=== PATIENT | female | born 2000 ===

== ENCOUNTER → 2019-12-14 | Outpatient (CLI) | payer OTHER ==
[2019-12-14 16:45] LABS: Source, Urine Clean Catch
[2019-12-14 19:02] LABS: Bilirubin, Urine Neg (Neg); Blood, Urine 1+ (Neg); Glucose Qualitative, Urine Neg (Neg); Ketones, Urine Neg (Neg); Leukocyte Esterase, Urine 2+ (Neg); Nitrite, Urine Pos (Neg); Protein, Urine 1+ (Neg); Urobilinogen, Urine NORM (Normal)
[2019-12-14 19:04] LABS: Appearance, Urine Hazy (Clear); Color, Urine Yellow (P-Yellow)
[2019-12-14 19:05] LABS: Bacteria Many /hpf; Red Blood Cells, Urine 0-2 /hpf (0-2); Squamous Epithelial Cells Many /hpf (Few)
== END | disposition home or self-care (01) ==
LOC: LAB SHORT 14:45 → LAB 14:45
PROVIDERS: Obstetrics & Gynecology
DX: O99.89 Other specified diseases and conditions complicating pregnancy, childbirth and the puerperium (principal); R82.90 Unspecified abnormal findings in urine
CPT/HCPCS: 81001; 87077; 87081; 87086; 87186; 87653

== ENCOUNTER → 2019-12-28 | Outpatient (CLI) | payer OTHER ==
[2019-12-28 16:46] LABS: Source, Urine Clean Catch
[2019-12-28 18:38] LABS: Bilirubin, Urine Neg (Neg); Blood, Urine 2+ (Neg); Glucose Qualitative, Urine Neg (Neg); Ketones, Urine 1+ (Neg); Leukocyte Esterase, Urine 2+ (Neg); Nitrite, Urine Neg (Neg); Protein, Urine 3+ (Neg); Specific Gravity, Urine 1.025 (1.003-1.022); Urobilinogen, Urine NORM (Normal)
[2019-12-28 19:17] LABS: Appearance, Urine Cloudy (Clear); Color, Urine Yellow (P-Yellow)
[2019-12-28 19:23] LABS: Bacteria Many /hpf; Squamous Epithelial Cells Many /hpf (Few)
== END ==
LOC: LAB SHORT 15:30 → LAB 15:30
PROVIDERS: Obstetrics & Gynecology
DX: R31.9 Hematuria, unspecified (principal)
CPT/HCPCS: 81001

== ENCOUNTER 2020-01-10 05:44 | Inpatient (IN) | payer OTHER ==
[~2020-01-10] VITALS: Ht 175.3 cm; Wt 104.0 kg
[2020-01-10 06:20] LABS: BASOPHILS ABSOLUTE AUTO 0.03 K/mm3 (0.00-0.23); BASOPHILS PERCENT AUTO 1 % (0-2); EOSINOPHILS ABSOLUTE AUTO 0.07 K/mm3 (0.00-0.68); EOSINOPHILS PERCENT AUTO 1 % (0-6); Hematocrit 34.4 % (33.0-51.0); Hemoglobin 11.2 g/dL (11.5-16.0); IMMATURE GRAN ABSOLUTE AUTO 0.03 K/mm3 (0.00-0.10); IMMATURE GRAN PERCENT AUTO 1 % (0-1); LYMPHOCYTES ABSOLUTE AUTO 2.67 K/mm3 (0.84-5.20); LYMPHOCYTES PERCENT AUTO 41 % (21-46); MONOCYTES ABSOLUTE AUTO 0.61 K/mm3 (0.16-1.47); MONOCYTES PERCENT AUTO 9 % (4-13); Mean Corpuscular HGB 27.3 pg (26.0-34.0); Mean Corpuscular HGB Conc 32.6 g/dL (31.5-36.5); Mean Corpuscular Volume 84 fL (80-100); Mean Platelet Volume 10.3 fL (9.1-12.4); NEUTROPHILS ABSOLUTE AUTO 3.19 K/mm3 (1.96-9.15); NEUTROPHILS PERCENT AUTO 48 % (41-73); Platelet Count 255 K/mm3 (150-400); RDW Coefficient Variation 14.6 % (11.7-14.2); RDW Standard Deviation 43.7 fL (35.1-46.3); Red Blood Cell Count 4.11 M/mm3 (3.80-5.20)
[2020-01-10] MEDS ORDERED: CEPH500 PO (06:25)
[2020-01-10 17:19] LABS: Source, Urine Catheter
[2020-01-10 17:27] LABS: Bilirubin, Urine Neg (Neg); Blood, Urine Neg (Neg); Glucose Qualitative, Urine Neg (Neg); Ketones, Urine Neg (Neg); Leukocyte Esterase, Urine Neg (Neg); Nitrite, Urine Neg (Neg); Protein, Urine 1+ (Neg); Specific Gravity, Urine 1.015 (1.003-1.022); Urobilinogen, Urine NORM (Normal)
[2020-01-10 17:37] LABS: Appearance, Urine Clear (Clear); Color, Urine Yellow (P-Yellow)
--- NOTE | 2020-01-10 19:30 | NUR ---
ASSUMED PT CARE, BEDSIDE REPORT RECEIVED. PT RESTING IN BED, BLADDER DISTENDED, PT UP TO SHOWER, VOIDED. FF, SCANT, -2 AFTER VOID. PLAN TO REST. WILL RECHECK CBG ON NB AT 2230 OR BEFORE IF NEEDED. PT REPORTS LATCH WENT OK, ENCOURGED TO CALL IF NEEDING ASSISTANCE.
--- NOTE | 2020-01-11 07:01 | NUR ---
REPORT TO ONCOMING SHIFT, NO ACUTE CHANGES.
--- NOTE | 2020-01-11 13:34 | NUR ---
RN ROUNDED ON PT TO HELP WITH EDUCATION. INSTRUCT/DEMO ON WIDENING LATCH AND CORRECT POSITIOING. NB NOT SHOWING ANY INTEREST IN BRF AT THIS TIME, MOTHER VERBALIZED UNDERSTANDING OF INSTRUCTIONS. NURSING BOOKLET AND PAMPHLET REVIEWED WITH PT. PT VERBALIZED UNDERSTANDING AND DENIES ANY FURTHER QUESTIONS OR CONCERNS. RN INSTRUCT/DEMO HOW TO HAND EXPRESS COLOSTRUM INTO NB MOUTH.
--- NOTE | 2020-01-11 20:36 | NUR ---
Discharge teaching given, paper signed, hugs removed, and walked out to car with baby and family at 2030. HERB, RN
--- NOTE | 2020-01-11 21:54 | NUR ---
LIMITED ASSESSMENT DONE WHILE WORKING ON DISCHARGING PT. PT DENIED FURTHER QUESTIONS OR CONCERNS DURING DISCHARGE TEACHING AND APPEARS WELL AND COMFORTABLE. INSTRUCTED THAT SHE CAN CALL [facility] FOR QUESTIONS OR CONCERNS. HERB, RN
== END 2020-01-11 20:30 | disposition home or self-care (01) | DRG 807 ==
LOC: BC 05:44
PROVIDERS: ADMIT Obstetrics & Gynecology
PROC: 10E0XZZ Delivery of Products of Conception, External Approach (ICD-10-PCS; principal; 2020-01-10)
PROC: 0UQMXZZ Repair Vulva, External Approach (ICD-10-PCS; 2020-01-10)
PROC: 3E033VJ Introduction of Other Hormone into Peripheral Vein, Percutaneous Approach (ICD-10-PCS; 2020-01-10)
PROC: 10907ZC Drainage of Amniotic Fluid, Therapeutic from Products of Conception, Via Natural or Artificial Opening (ICD-10-PCS; 2020-01-10)
DX: O99.824 Streptococcus B carrier state complicating childbirth (principal); Z37.0 Single live birth; Z3A.40 40 weeks gestation of pregnancy; O71.82 Other specified trauma to perineum and vulva; Z87.891 Personal history of nicotine dependence
CPT/HCPCS: 36415; 51702; 85025; 86850; 86900; 86901; J0290; J2001; J2590; J3010; J7120

== ENCOUNTER → 2022-01-17 | Outpatient (CLI) | payer OTHER ==
[~2022-01-17] MED LIST: CEPH500 PO
[2022-01-22 13:11] LABS: CHLAMYDIA TRACHOMATIS, NAA Negative (Negative)
== END | disposition home or self-care (01) ==
LOC: LAB 08:16 → LAB SHORT 08:16
PROVIDERS: Obstetrics & Gynecology
DX: Z01.419 Encounter for gynecological examination (general) (routine) without abnormal findings (principal); Z11.3 Encounter for screening for infections with a predominantly sexual mode of transmission
CPT/HCPCS: 87491; 87591; G0123

== ENCOUNTER 2023-08-28 08:35 | Inpatient (IN) | payer OTHER ==
[2023-08-28] VITALS (24 sets, daily range): BP systolic 101–133; BP diastolic 56–84
[~2023-08-28] VITALS: Ht 175.3 cm; Wt 105.5 kg
[~2023-08-28 08:35] MED LIST changes: +IBUP800 PO; +IRON18 MG PO; +PRENATAL TABLE1 EAC2 PO
[2023-08-28 09:27] LABS: BASOPHILS ABSOLUTE AUTO 0.03 K/mm3 (0.00-0.23); BASOPHILS PERCENT AUTO 0 % (0-2); EOSINOPHILS ABSOLUTE AUTO 0.04 K/mm3 (0.00-0.68); EOSINOPHILS PERCENT AUTO 1 % (0-6); Hematocrit 31.6 % (33.0-51.0); Hemoglobin 9.9 g/dL (11.5-16.0); IMMATURE GRAN ABSOLUTE AUTO 0.03 K/mm3 (0.00-0.10); IMMATURE GRAN PERCENT AUTO 0 % (0-1); LYMPHOCYTES ABSOLUTE AUTO 2.29 K/mm3 (0.84-5.20); LYMPHOCYTES PERCENT AUTO 32 % (21-46); MONOCYTES ABSOLUTE AUTO 0.45 K/mm3 (0.16-1.47); MONOCYTES PERCENT AUTO 6 % (4-13); Mean Corpuscular HGB 21.9 pg (26.0-34.0); Mean Corpuscular HGB Conc 31.3 g/dL (31.5-36.5); Mean Corpuscular Volume 70 fL (80-100); Mean Platelet Volume 10.2 fL (9.1-12.4); NEUTROPHILS ABSOLUTE AUTO 4.28 K/mm3 (1.96-9.15); NEUTROPHILS PERCENT AUTO 60 % (41-73); Platelet Count 300 K/mm3 (150-400); RDW Coefficient Variation 19.3 % (11.7-14.2); RDW Standard Deviation 46.1 fL (35.1-46.3); Red Blood Cell Count 4.53 M/mm3 (3.80-5.20); White Blood Cell Count 7.12 K/mm3 (4.00-11.30)
[2023-08-29 04:54] VITALS: BP 110/58
[2023-08-29 05:51] LABS: BASOPHILS ABSOLUTE AUTO 0.04 K/mm3 (0.00-0.23); BASOPHILS PERCENT AUTO 1 % (0-2); EOSINOPHILS ABSOLUTE AUTO 0.07 K/mm3 (0.00-0.68); EOSINOPHILS PERCENT AUTO 1 % (0-6); Hematocrit 27.8 % (33.0-51.0); Hemoglobin 8.8 g/dL (11.5-16.0); IMMATURE GRAN ABSOLUTE AUTO 0.03 K/mm3 (0.00-0.10); IMMATURE GRAN PERCENT AUTO 0 % (0-1); LYMPHOCYTES ABSOLUTE AUTO 2.53 K/mm3 (0.84-5.20); LYMPHOCYTES PERCENT AUTO 30 % (21-46); MONOCYTES ABSOLUTE AUTO 0.57 K/mm3 (0.16-1.47); MONOCYTES PERCENT AUTO 7 % (4-13); Mean Corpuscular HGB 22.4 pg (26.0-34.0); Mean Corpuscular HGB Conc 31.7 g/dL (31.5-36.5); Mean Corpuscular Volume 71 fL (80-100); NEUTROPHILS ABSOLUTE AUTO 5.35 K/mm3 (1.96-9.15); NEUTROPHILS PERCENT AUTO 62 % (41-73); Platelet Count 238 K/mm3 (150-400); RDW Coefficient Variation 19.2 % (11.7-14.2); RDW Standard Deviation 47.8 fL (35.1-46.3); Red Blood Cell Count 3.93 M/mm3 (3.80-5.20); White Blood Cell Count 8.59 K/mm3 (4.00-11.30)
[2023-08-29 08:44] VITALS: BP 109/64
[2023-08-29 11:28] VITALS: BP 107/70
[2023-08-29 14:30] LABS: RPR Reactive (Nonreactive)
[2023-08-29] MEDS ORDERED: FERREX 28 TABL1 EACH PO (15:27)
[2023-08-29] MEDS ORDERED: IBUP800 PO (15:27)
[2023-08-29] MEDS ORDERED: FERSU300 PO (15:29)
[2023-08-29 15:36] VITALS: BP 99/70
--- NOTE | 2023-08-29 15:55 | NUR ---
DISCHARGE DISCHARGE HOME STABLE WITH . VSS. AFEBRILE. LOCHIA SCAN. CARING FOR SELF AND BABY INDEPENDANTLY. NO QUESTIONS OR CONCERNS. VERBALIZES UNDERSTANDING OF DC INSTRUCTIONS AND FOLLOW UP APPOINTMENTS.
== END 2023-08-29 15:50 | disposition home or self-care (01) | DRG 806 ==
LOC: OBS 08:35 → BC 08:37 → OBS 08:47 → BC 08:48
PROVIDERS: ADMIT Obstetrics & Gynecology
PROC: 10E0XZZ Delivery of Products of Conception, External Approach (ICD-10-PCS; principal; 2023-08-28)
PROC: 3E0R3BZ Introduction of Anesthetic Agent into Spinal Canal, Percutaneous Approach (ICD-10-PCS; 2023-08-28)
PROC: 00HU33Z Insertion of Infusion Device into Spinal Canal, Percutaneous Approach (ICD-10-PCS; 2023-08-28)
PROC: 10907ZC Drainage of Amniotic Fluid, Therapeutic from Products of Conception, Via Natural or Artificial Opening (ICD-10-PCS; 2023-08-28)
DX: O99.344 Other mental disorders complicating childbirth (principal); O99.324 Drug use complicating childbirth; Z37.0 Single live birth; F41.9 Anxiety disorder, unspecified; F32.A Depression, unspecified; O71.89 Other specified obstetric trauma; F12.90 Cannabis use, unspecified, uncomplicated; O99.02 Anemia complicating childbirth; O76 Abnormality in fetal heart rate and rhythm complicating labor and delivery; D50.9 Iron deficiency anemia, unspecified; Z3A.39 39 weeks gestation of pregnancy; Z86.19 Personal history of other infectious and parasitic diseases; Z87.440 Personal history of urinary (tract) infections; Z90.49 Acquired absence of other specified parts of digestive tract; Z87.891 Personal history of nicotine dependence
CPT/HCPCS: 36415; 51702; 85025; 86592; 86593; 86780; 86850; 86900; 86901; A9270; J1885; J2590; J7120

== ENCOUNTER 2024-07-17 08:36 | Inpatient (IN) | payer OTHER ==
[2024-07-17] VITALS (12 sets, daily range): BP systolic 104–144; BP diastolic 55–80
[~2024-07-17] VITALS: Ht 175.3 cm; Wt 104.5 kg
[~2024-07-17 08:36] MED LIST changes: +FERREX 28 TABL1 EACH PO; +FERSU300 PO
[2024-07-17] MEDS ORDERED: Methylergonovine Maleate 0.2MG / ML 1ML Amp ONE (08:53)
[2024-07-17] MEDS ORDERED: Oxytocin 10 Unit / ML Vial IM PRN (09:10)
[2024-07-17] MEDS ORDERED: Methylergonovine Maleate 0.2MG / ML 1ML Amp IM PRN ×2 (09:10→09:40)
[2024-07-17] MEDS ORDERED: Misoprostol 200 MCG Tab BC PRN (09:10)
[2024-07-17] MEDS ORDERED: Misoprostol 200 MCG Tab PR PRN ×2 (09:10→09:35)
[2024-07-17] MEDS ORDERED: Tranexamic Acid 100 ML IV SCH (09:10)
[2024-07-17] MEDS ORDERED: Carboprost Tromethamine 250 MCG/ML 1ML Amp IM PRN ×2 (09:10→09:45)
[2024-07-17] MEDS ORDERED: AMOX-CLAV 875-1 EAC5 PO (09:31)
[2024-07-17] MEDS ORDERED: OXYTOCIN/RINGER'S LACTATE 500 ML IV SCH (09:35)
[2024-07-17] MEDS ORDERED: Oxytocin 10 Unit / ML Vial IM ONE (09:35)
[2024-07-17] MEDS ORDERED: Lanolin Cream TOP PRN (09:35)
[2024-07-17] MEDS ORDERED: Ibuprofen 400 MG Tab PO PRN (09:40)
[2024-07-17] MEDS ORDERED: Ketorolac Tromethamine 30mg Vial IV PRN (09:40)
[2024-07-17] MEDS ORDERED: Acetaminophen 500 MG Tab PO PRN (09:40)
[2024-07-17] MEDS ORDERED: Witch Hazel/Glycerin PADS TOP PRN (09:40)
[2024-07-17] MEDS ORDERED: Docusate Sodium 100 MG Cap PO PRN (09:40)
[2024-07-17] MEDS ORDERED: Lactated Ringer's 1,000 ML IV SCH (09:40)
[2024-07-17] MEDS ORDERED: Benzocaine Topical Anesthetic Spray 60GM TOP PRN (09:45)
[2024-07-17] MEDS ORDERED: Ondansetron 4 MG SoluTab SL PRN (10:20)
[2024-07-17 13:40] LABS: BASOPHILS ABSOLUTE AUTO 0.04 K/mm3 (0.00-0.23); BASOPHILS PERCENT AUTO 0 % (0-2); EOSINOPHILS ABSOLUTE AUTO 0.02 K/mm3 (0.00-0.68); EOSINOPHILS PERCENT AUTO 0 % (0-6); Hematocrit 29.4 % (33.0-51.0); Hemoglobin 9.1 g/dL (11.5-16.0); IMMATURE GRAN ABSOLUTE AUTO 0.04 K/mm3 (0.00-0.10); IMMATURE GRAN PERCENT AUTO 0 % (0-1); LYMPHOCYTES ABSOLUTE AUTO 1.55 K/mm3 (0.84-5.20); LYMPHOCYTES PERCENT AUTO 13 % (21-46); MONOCYTES ABSOLUTE AUTO 0.55 K/mm3 (0.16-1.47); MONOCYTES PERCENT AUTO 5 % (4-13); Mean Corpuscular HGB 20.6 pg (26.0-34.0); Mean Corpuscular Volume 67 fL (80-100); Mean Platelet Volume 9.9 fL (9.1-12.4); NEUTROPHILS ABSOLUTE AUTO 9.81 K/mm3 (1.96-9.15); NEUTROPHILS PERCENT AUTO 82 % (41-73); Platelet Count 265 K/mm3 (150-400); RDW Coefficient Variation 19.9 % (11.7-14.2); RDW Standard Deviation 46.2 fL (35.1-46.3); Red Blood Cell Count 4.42 M/mm3 (3.80-5.20); White Blood Cell Count 12.01 K/mm3 (4.00-11.30)
[2024-07-17] MEDS ORDERED: Oxytocin 10 Unit / ML Vial XX ONE (16:08)
[2024-07-18 00:25] VITALS: BP 109/72
[2024-07-18 04:15] VITALS: BP 104/55
[2024-07-18 07:59] VITALS: BP 109/67
[2024-07-18] MEDS ORDERED: Prenatal Vit/FE Fumarate/FA 1 Tab PO SCH (09:00)
[2024-07-18] MEDS ORDERED: IBUP400 PO (11:11)
[2024-07-18] MEDS ORDERED: ACET500 PO (11:12)
[2024-07-18] MEDS ORDERED: DOCU100 PO (11:12)
[2024-07-18 12:02] VITALS: BP 115/60
== END 2024-07-18 13:25 | disposition home or self-care (01) | DRG 806 ==
LOC: OBS 08:36 → BC 08:47 → OBS 08:51 → BC 08:52
PROVIDERS: ADMIT Advanced Practice Midwife
PROC: 10E0XZZ Delivery of Products of Conception, External Approach (ICD-10-PCS; principal; 2024-07-17)
DX: O99.02 Anemia complicating childbirth (principal); O99.324 Drug use complicating childbirth; Z37.0 Single live birth; Z3A.39 39 weeks gestation of pregnancy; D50.9 Iron deficiency anemia, unspecified; F12.90 Cannabis use, unspecified, uncomplicated; O69.81X0 Labor and delivery complicated by cord around neck, without compression, not applicable or unspecified; O99.334 Smoking (tobacco) complicating childbirth; F17.210 Nicotine dependence, cigarettes, uncomplicated; O99.814 Abnormal glucose complicating childbirth
CPT/HCPCS: 36415; 85025; A9270; J1885; J2210; J2590

== ENCOUNTER 2025-06-18 15:37 | Emergency (ER) | payer OTHER ==
[~2025-06-18] VITALS: Ht 177.8 cm; Wt 99.8 kg
[~2025-06-18 15:37] MED LIST changes: +ACET500 PO; +AMOX-CLAV 875-1 EAC5 PO; +DOCU100 PO; +IBUP400 PO
[2025-06-18 16:44] VITALS: BP 128/81
[2025-06-18 17:13] LABS: BASOPHILS ABSOLUTE AUTO 0.04 K/mm3 (0.00-0.23); BASOPHILS PERCENT AUTO 0 % (0-2); EOSINOPHILS ABSOLUTE AUTO 0.07 K/mm3 (0.00-0.68); EOSINOPHILS PERCENT AUTO 1 % (0-6); Hematocrit 34.7 % (33.0-51.0); Hemoglobin 11.1 g/dL (11.5-16.0); IMMATURE GRAN ABSOLUTE AUTO 0.04 K/mm3 (0.00-0.10); IMMATURE GRAN PERCENT AUTO 0 % (0-1); LYMPHOCYTES ABSOLUTE AUTO 1.98 K/mm3 (0.84-5.20); LYMPHOCYTES PERCENT AUTO 18 % (21-46); MONOCYTES ABSOLUTE AUTO 0.97 K/mm3 (0.16-1.47); MONOCYTES PERCENT AUTO 9 % (4-13); Mean Corpuscular HGB Conc 32.0 g/dL (31.5-36.5); Mean Corpuscular Volume 76 fL (80-100); NEUTROPHILS ABSOLUTE AUTO 8.11 K/mm3 (1.96-9.15); NEUTROPHILS PERCENT AUTO 72 % (41-73); NRBC ABSOLUTE 0.00 K/mm3 (0.00-0.02); NRBC Auto 0.0 /100 WBC (0.0-0.2); Platelet Count 375 K/mm3 (150-400); RDW Coefficient Variation 18.6 % (11.7-14.2); RDW Standard Deviation 51.4 fL (35.1-46.3)
[2025-06-18 17:37] LABS: Alanine Aminotransfer (ALT/SGP 21.0 U/L (12-78); Albumin, Blood 3.6 g/dL (3.4-5.0); Albumin/Globulin Ratio 0.8 (0.8-1.8); Anion Gap 8.0 mmol/L (3-11); Aspartate Aminotrans (AST/SGOT 12.0 U/L (12-37); Bilirubin, Total 0.5 mg/dL (0.1-1.0); Blood Urea Nitrogen 8.0 mg/dL (8-24); CO2, Blood 23.0 mmol/L (21-32); Calcium, Blood 9.4 mg/dL (8.5-10.1); Chloride, Blood 107.0 mmol/L (98-108); Creatinine, Blood 0.66 mg/dL (0.40-1.00); Globulin, Blood 4.3 g/dL (2.2-4.0); Glucose, Blood 111.0 mg/dL (70-99); Potassium, Blood 3.4 mmol/L (3.5-5.5); Sodium, Blood 135.0 mmol/L (136-145); Total Protein, Blood 7.9 g/dL (6.4-8.2)
[2025-06-18] MEDS ORDERED: Ketorolac Tromethamine 15mg Vial IV ONE (19:10)
[2025-06-18] MEDS ORDERED: Ampicillin Sod/Sulbactam Sod 3 GM in NS 100 ML IV ONE (19:10)
[2025-06-18] MEDS ORDERED: Dexamethasone Sod Phos 10 MG/ML 1ML VIAL IV ONE (19:15)
[2025-06-18] MEDS ORDERED: AMOCLA875 PO (20:02)
[2025-06-18] MEDS ORDERED: ACET500 PO (20:02)
[2025-06-18] MEDS ORDERED: IBUP600 PO (20:02)
== END 2025-06-18 20:09 | disposition home or self-care (01) ==
LOC: ER 15:37
PROVIDERS: Student in an Organized Health Care Education/Training Program
DX: K04.7 Periapical abscess without sinus (principal); Z90.49 Acquired absence of other specified parts of digestive tract; Z79.899 Other long term (current) drug therapy
CPT/HCPCS: 70487; 80053; 83605; 84703; 85025; 96365-59; 96375; 99283-25; J0295; J1100; J1885; Q9967